=== PATIENT | male | born 1985 | race Caucasian/White ===

== ENCOUNTER 2016-11-27 00:07 | Emergency (ER) | payer OTHER ==
[~2016-11-27] VITALS: Ht 177.8 cm; Wt 113.4 kg
[~2016-11-27 00:07] MED LIST: FIORICET 50-301 EACH PO; IBUPROFEN600 M1 PO
--- NOTE | 2016-11-27 00:24 | ED GI/GU/ABDOMINAL COMPLAINT ---
History of Present Illness General Chief Complaint: Abdominal Pain/Flank Pain Stated Complaint: " PER PT STOMACH BUG" Source: patient, family, old records Exam Limitations: no limitations Vital Signs & Intake/Output Vital Signs & Intake/Output Vital Signs Date Time Temp Pulse Resp B/P B/P Pulse O2 O2 Flow FiO2 Mean Ox Delivery Rate 11/27 0208 97.6 82 18 146/63 99 Room Air 11/27 0024 98.1 85 18 141/87 97 Room Air Allergies Uncoded Allergies: PCN (Intermediate, FEET PEEL 11/21/15) Reconcile Medications Ibuprofen 600 MG TABLET 1 TAB PO TID PRN PAIN with food Triage Nurses Notes Reviewed? yes HPI: Patient presents with a four-day history of diffuse achy abdominal pain. The pain is constant. There is no aggravating or mitigating factors. Positive nausea and diarrhea. No vomiting. No fevers or chills. No radiation outside of the abdominal area. He rates the pain is 8 out of 10. Past History Travel History Traveled to [place] past 21 day No Medical History Any Pertinent Medical History? see below for history Neurological: NONE EENT: NONE Cardiovascular: hyperlipidemia Respiratory: NONE Gastrointestinal: NONE Hepatic: NONE Renal: NONE Musculoskeletal: BACK PAIN Psychiatric: NONE Endocrine: NONE Surgical History Surgical History: non-contributory Psychosocial History What is your primary language Urdu Tobacco Use: Never used ETOH Use: occasional use Illicit Drug Use: denies illicit drug use Family History Hx Contributory? No Review of Systems Review of Systems Constitutional: Reports: no symptoms. EENTM: Reports: no symptoms. Respiratory: Reports: no symptoms. Cardiovascular: Reports: no symptoms. GI: Reports: see HPI, abdominal pain, diarrhea, nausea. Genitourinary: Reports: no symptoms. Musculoskeletal: Reports: no symptoms. Skin: Reports: no symptoms. Neurological/Psychological: Reports: no symptoms. Hematologic/Endocrine: Reports: no symptoms. Immunologic/Allergic: Reports: no symptoms. All Other Systems: Reviewed and Negative Physical Exam Physical Exam General Appearance: well developed/nourished, alert, awake, mild distress Head: atraumatic, normal appearance Eyes: Bilateral: PERRL. Ears, Nose, Throat, Mouth: hearing grossly normal, DRY MUCOSA Neck: normal inspection, supple, full range of motion Respiratory: normal breath sounds, chest non-tender, no respiratory distress, lungs clear Cardiovascular: regular rate/rhythm, normal peripheral pulses Gastrointestinal: normal bowel sounds, soft, non-tender, no organomegaly Back: normal inspection Extremities: normal range of motion Neurologic/Psych: no motor/sensory deficits, awake, alert, oriented x 3, normal gait, normal mood/affect Skin: intact, normal color, warm/dry Core Measures ACS in differential dx? No Severe Sepsis Present: No Septic Shock Present: No Progress Differential Diagnosis: appendicitis, biliary colic, cholecystitis, diverticulitis, gastritis, hepatitis, ischemic bowel, inflamm bowel dis, pancreatitis, peptic ulcer, PUD/GERD Plan of Care: Orders Procedure Date/time Status LIPASE 11/27 24 Complete COMPREHENSIVE METABOLIC PANEL 11/27 24 Complete CBC WITHOUT DIFFERENTIAL 11/27 24 Complete AMYLASE 11/27 24 Complete Laboratory Tests 11/27/16 0044: Anion Gap 13, Estimated GFR > 60, BUN/Creatinine Ratio 16.3, Glucose 100 H, Calcium 8.8, Total Bilirubin 1.0, AST 29, ALT 62, Alkaline Phosphatase 83, Total Protein 7.3, Albumin 4.2, Globulin 3.1, Albumin/Globulin Ratio 1.4, Amylase 38, Lipase 80, CBC w Diff NO MAN DIFF REQ, RBC 4.89, MCV 89.5, MCH 31.5 H, RDW 12.9 , MPV 7.7, Gran % 59.9, Lymphocytes % 27.3, Monocytes % 7.7, Eosinophils % 4.7, Basophils % 0.4, Absolute Granulocytes 4.3, Absolute Lymphocytes 2.0, Absolute Monocytes 0.6, Absolute Eosinophils 0.3, Absolute Basophils 0, PUBS MCHC 35.2 Initial ED EKG: none Departure Departure Disposition: HOME OR SELF CARE Condition: Stable Clinical Impression Primary Impression: Gastroenteritis Referrals: ELYSSA PASCAL,DESTINY Davis (PCP/Family) Additional Instructions: RETURN IF SYMPTOMS WORSEN OR FOR ANY CONCERNS Departure Forms: Customer Survey General Discharge Information Prescriptions: Current Visit Scripts Ondansetron (Zofran Odt) 1 TAB SL TID PRN NAUSEA #10 TAB
[2016-11-27 00:59] LABS: ABSOLUTE BASOPHIL COUNT 0 /CUMM (0.0-0.2); ABSOLUTE EOSINOPHIL COUNT 0.3 /CUMM (0.0-0.7); ABSOLUTE GRANULOCYTE CT 4.3 /CUMM (1.4-6.5); ABSOLUTE MONOCYTE COUNT 0.6 /CUMM (0.10-0.60); BASOPHIL % 0.4 % (0.0-2.0); EOSINOPHIL % 4.7 % (0-5); GRANULOCYTE % 59.9 % (42.2-75.2); HEMATOCRIT 43.7 % (42-52); MEAN CORPUSCULAR HGB 31.5 PG (27.0-31.0); MEAN CORPUSCULAR HGB CONC 35.2 G/DL (33.0-37.0); MEAN CORPUSCULAR VOLUME 89.5 FL (80.0-94.0); MEAN PLATELET VOLUME 7.7 FL (7.4-10.4); PLATELET COUNT 229 /CUMM (130-400); RBC DISTRIBUTION WIDTH 12.9 % (11.5-14.5); RED BLOOD CELL CT 4.89 /CUMM (4.70-6.10); WHITE BLOOD CELL COUNT 7.2 /CUMM (4.8-10.8)
[2016-11-27] MEDS ORDERED: ZOFRAN ODT4 M1 SL (02:47)
[2016-11-27 03:25] VITALS: BP 144/56
== END 2016-11-27 03:28 ==
LOC: ERH 00:07
PROVIDERS: Emergency Medicine
DX: K52.9 Noninfective gastroenteritis and colitis, unspecified (principal)
CPT/HCPCS: 96374; J2405

== ENCOUNTER 2016-12-24 11:55 | Emergency (ER) | payer OTHER ==
[~2016-12-24] VITALS: Ht 177.8 cm; Wt 106.6 kg
[~2016-12-24 11:55] MED LIST changes: +ZOFRAN ODT4 M1 SL
[2016-12-24 12:34] VITALS: BP 175/98
--- NOTE | 2016-12-24 12:52 | ED GENERAL ADULT ---
History of Present Illness General Chief Complaint: Fever Stated Complaint: FEVER Source: patient Exam Limitations: no limitations Vital Signs & Intake/Output Vital Signs & Intake/Output Vital Signs Date Time Temp Pulse Resp B/P B/P Pulse O2 O2 Flow FiO2 Mean Ox Delivery Rate 12/24 1234 98.2 100 18 175/98 98 Room Air ED Intake and Output 12/25 0000 12/24 1200 Intake Total Output Total Balance Patient 235 lb Weight Weight Reported by Patient Measurement Method Allergies Uncoded Allergies: PCN (Intermediate, FEET PEEL 11/21/15) Reconcile Medications Ibuprofen 800 MG TABLET 1 TAB PO TID PRN FEVER Triage Note: 31 Y/0 MALE STATING HE "WAS OUTSIDE IN THE RAIN YESTERDAY AND THEN I HAD A FEVER TODAY". STATES FEVER WAS UP TO 101 AT HOME, TOOK 800MG MOTRIN AT 1050. AFEBRILE IN TRIAGE, 98.2. PT DENIES ALL COMPLAINTS. Triage Nurses Notes Reviewed? yes Onset: Abrupt Duration: hour(s): (few) Timing: single episode today Injury Environment: home Severity: mild Modifying Factors: Improves With: medication. Associated Symptoms: fever, myalgias HPI: 31-year-old healthy male presents to the ER with chief complaint of body aches that started this morning. He noticed a fever of 101 at home. He took some ibuprofen. Denies any cough, sore throat, ear pain, abdominal pain, nausea vomiting or diarrhea. Denies any rash. No recent travel out of the country. He denies any urinary symptoms, back pain, rash. He states yesterday he was out in the rain. Denies any sick contacts at home. Fully vaccinated. Blood work done in April was normal limits. Patient requesting a prescription of ibuprofen. Past History Travel History Traveled to [place] past 21 day No Medical History Any Pertinent Medical History? 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 No Review of Systems Review of Systems Constitutional: Reports: fever. Denies: chills. EENTM: Denies: ear pain, throat pain. Respiratory: Denies: cough, short of breath. Cardiovascular: Denies: chest pain, palpitations, peripheral edema. GI: Denies: diarrhea, vomiting. Genitourinary: Reports: no symptoms. Musculoskeletal: Reports: muscle pain. Denies: muscle stiffness. Skin: Denies: rash. Neurological/Psychological: Reports: no symptoms. Hematologic/Endocrine: Denies: bruising, bleeding, polyuria, polydipsia. Immunologic/Allergic: Denies: splenectomy. All Other Systems: Reviewed and Negative Physical Exam Physical Exam General Appearance: well developed/nourished, no apparent distress, alert, awake , obese Head: atraumatic, normal appearance Eyes: Bilateral: normal appearance, PERRL, EOMI. Ears, Nose, Throat: normal pharynx, hearing grossly normal Neck: normal inspection, supple, full range of motion Respiratory: normal breath sounds, chest non-tender, no respiratory distress Cardiovascular: regular rate/rhythm Gastrointestinal: soft, non-tender Extremities: normal inspection, normal range of motion, no edema Neurologic/Psych: no motor/sensory deficits, awake, alert, oriented x 3 Skin: intact, normal color, warm/dry Core Measures ACS in differential dx? No CVA/TIA Diagnosis: No Severe Sepsis Present: No Septic Shock Present: No Progress Differential Diagnoses I considered the following diagnoses in my evaluation of the patient: [viral syndrome, febrile illness] Plan of Care: patient without any symptoms besides fever and myalgias. Well appearing. I requestd to return should he develop any symptosm or to see his primary care doctor. Initial ED EKG: none Departure Departure Time of Disposition: 1256 Disposition: HOME OR SELF CARE Condition: Stable Clinical Impression Primary Impression: Febrile illness, acute Referrals: ELYSSA PASCAL,DESTINY Davis (PCP/Family) Additional Instructions: Take Motrin as needed for fever and please monitor temperatures. Follow-up with primary doctor in the office. Return to the ER for any changing or worsening symptoms. Departure Forms: Customer Survey General Discharge Information Prescriptions: Current Visit Scripts Ibuprofen 1 TAB PO TID PRN FEVER #20 TAB Critical Care Note Critical Care Note Critical Care Time: non-applicable
[2016-12-24] MEDS ORDERED: IBUPROFEN800 M1 PO (12:59)
== END 2016-12-24 13:04 ==
LOC: ERH 11:55
DX: R50.9 Fever, unspecified (principal)

== ENCOUNTER 2018-01-06 09:12 | Emergency (ER) | payer OTHER ==
[~2018-01-06] VITALS: Ht 177.8 cm; Wt 113.4 kg
[~2018-01-06 09:12] MED LIST changes: +IBUPROFEN800 M1 PO
[2018-01-06 09:16] VITALS: BP 179/100
[2018-01-06] MEDS ORDERED: BUPROPION XL150 MG PO (10:48)
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
[2018-01-06] MEDS ORDERED: CYCLOBENZAPRINE10 M1 PO (11:41)
[2018-01-06] MEDS ORDERED: IBUPROFEN600 M1 PO (11:41)
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
== END 2018-01-06 11:50 ==
LOC: ERH 09:12
DX: S39.012A Strain of muscle, fascia and tendon of lower back, initial encounter (principal); V89.2XXA Person injured in unspecified motor-vehicle accident, traffic, initial encounter
CPT/HCPCS: 72110

== ENCOUNTER 2018-02-07 06:10 | Emergency (ER) | payer OTHER ==
[~2018-02-07] VITALS: Ht 177.8 cm; Wt 127.0 kg
[~2018-02-07 06:10] MED LIST changes: +BUPROPION XL150 MG PO; +CYCLOBENZAPRINE10 M1 PO
[2018-02-07] MEDS ORDERED: ZITHROMAX250 M2 PO (07:36)
[2018-02-07] MEDS ORDERED: PROAIR HFA8.5 GM INH (07:36)
[2018-02-07] MEDS ORDERED: ROBITUSSIN COU237 M1 PO (07:36)
--- NOTE | 2018-02-07 07:38 | ED INFLUENZA/URI COMPLAINT ---
History of Present Illness General Chief Complaint: General Adult Stated Complaint: "LOT OF CHEST CONGESTION PAINFULL COUGH" Source: patient Exam Limitations: no limitations Vital Signs & Intake/Output Vital Signs & Intake/Output Vital Signs Date Time Temp Pulse Resp B/P B/P Pulse O2 O2 Flow FiO2 Mean Ox Delivery Rate 02/07 0728 Room Air 02/07 0621 97.4 82 20 146/97 98 Room Air Allergies Coded Allergies: Penicillins (Intermediate, FEET PEEL 01/06/18) Reconcile Medications Bupropion HCl (Bupropion XL) 150 MG TAB.ER.24H 1 TAB PO QAM MENTAL HEALTH ( Reported) Cyclobenzaprine HCl 10 MG TABLET 1 TAB PO TID PRN muscle strain Ibuprofen 600 MG TABLET 1 TAB PO Q6P PRN pain with food Triage Note: 33YO MALE TO TRIAGE CO CHEST CONGESTION SINCE FRIDAY. STATES INCREASED COUGHING TONITE. RA SAT = 98 Triage Nurses Notes Reviewed? yes HPI: Patient presents for evaluation of a gradual onset of nasal and chest congestion that began on Friday. Symptoms are more or less constant and described as moderate in intensity and unresponsive to multiple [id number] cough and cold medications. Patient denies phlegm production sore throat or known ill contacts. Patient states he had a low-grade fever overnight but that "broke". He denies known lung history and denies cigarette smoking. Nothing seems to make him feel better. He feels that the congestion is "locked" into his chest. Past History Travel History Traveled to [place] past 21 day No Medical History Any Pertinent Medical History? 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 No Review of Systems Review of Systems Constitutional: Reports: no symptoms. EENTM: Reports: see HPI. Respiratory: Reports: see HPI. Cardiovascular: Reports: no symptoms. GI: Reports: no symptoms. Genitourinary: Reports: no symptoms. Musculoskeletal: Reports: no symptoms. Skin: Reports: no symptoms. Neurological/Psychological: Reports: no symptoms. Hematologic/Endocrine: Reports: no symptoms. Immunologic/Allergic: Reports: no symptoms. All Other Systems: Reviewed and Negative Physical Exam Physical Exam Ears, Nose, Throat: SEE BELOW Comments: Gen.: Well-nourished, well-developed, no acute respiratory distress. Head: Normocephalic, atraumatic. Eyes: Normal inspection bilaterally Ears: Normal inspection bilaterally Nose: Normal inspection Face: Nontender to percussion Throat/mouth : Moist mucosa, no erythema or soft tissue swelling Neck: Supple, full range of motion, no goiter Heart: Regular rate and rhythm, no murmurs rubs or gallops Lungs: Clear to auscultation bilaterally with normal air entry Chest: Nontender Back: Normal range of motion Abdomen: Soft, nontender, nondistended, normal bowel sounds Extremities: Normal range of motion grossly, equal radial pulses, no cyanosis clubbing or edema Neurologic: Cranial nerves grossly intact, speech is clear Skin: warm and dry Psychiatric: Calm, cooperative, no apparent delusions or hallucinations Core Measures Sepsis Present: No Sepsis Focused Exam Completed? No Progress Differential Diagnosis: pneumonia, pharyngitis, BRONCHITIS, VIRAL uri Plan of Care: SEE D/C INSTRUCTIONS Initial ED EKG: none Departure Departure Disposition: HOME OR SELF CARE Condition: Stable Clinical Impression Primary Impression: Upper respiratory infection Qualifiers: URI type: unspecified URI Qualified Code: J06.9 - Acute upper respiratory infection, unspecified Referrals: Halina Urbina MD (PCP/Family) Additional Instructions: Azithromycin as prescribed for possible secondary bacterial infection. Albuterol as needed to open the air passages and mobilize your chest congestion. Robitussin-DM to help break up congestion. Maintain a good fluid intake. Follow-up with your primary care physician in one week if not improving. Return if any concerns or sudden worsening. Thank you for choosing the [facility] for your care. It was a pleasure to serve you today. Mckay Merchant M.D. [facility] Departure Forms: Customer Survey General Discharge Information Prescriptions: Current Visit Scripts Azithromycin (Zithromax) 1 DP PO AD #6 TAB 2 the first day followed by 1 for days 2-5 Guaifenesin/Dextromethorphan (Robitussin Cough-Chest Dm Liq) 10 ML PO Q6P PRN COUGH,CONGESTION #250 ML Albuterol Sulfate (Proair Hfa) 2 PUF INH Q4-6 PRN PRN COUGH,CONGESTION,BREATHING #1 INHAL
[2018-02-07 08:07] VITALS: BP 138/84
== END 2018-02-07 08:27 ==
LOC: ERH 06:10
DX: J06.9 Acute upper respiratory infection, unspecified (principal); Z87.891 Personal history of nicotine dependence